=== PATIENT | male | born 1960 | race Caucasian/White ===

== ENCOUNTER 2020-11-29 12:33 | Emergency (ER) | payer OTHER ==
[~2020-11-29 12:33] MED LIST: GABAPENTIN800 MG PO; GLUCOPHAGE500 MG PO; MUPIROCIN22 GM; NORCO 5-325 TA1 EACH PO; PRINIVIL20 MG PO; VENTOLIN HFA 66.7 GM INH; ZANTAC150 MG PO
== END 2020-11-29 12:50 | disposition left against medical advice (07) ==
LOC: ER1 12:33
DX: Z53.21 Procedure and treatment not carried out due to patient leaving prior to being seen by health care provider (principal)

== ENCOUNTER 2021-04-16 17:18 | Emergency (ER) | payer OTHER | END 2021-04-16 19:55 | disposition home or self-care (01) | LOC: ER1 17:18 | DX: T18.0XXA Foreign body in mouth, initial encounter (principal); E11.9 Type 2 diabetes mellitus without complications; I10 Essential (primary) hypertension; J45.909 Unspecified asthma, uncomplicated; F17.200 Nicotine dependence, unspecified, uncomplicated | CPT/HCPCS: 99282 ==